=== PATIENT | male | born 1985 | race Caucasian/White ===

== ENCOUNTER 2024-07-15 08:48 | Day surgery (SDC) | payer OTHER, SELFPAY ==
--- NOTE | 2024-07-15 | PATH_ITS ---
[facility] Accession Number: [id number] No. of containers..04 Tissue . 01 Material submitted: . PART A: small bowel - SMALL BOWEL PART B: gastrointestinal site - STOMACH BIOPSY PART C: colon - RANDOM COLON PART D: rectum - RECTUM . 01 Clinical history: . A: FOR CELIAC B: FOR H.P C: FOR DIARRHEA . 01 Diagnosis: A. Duodenum, biopsy: - Small bowel mucosa with preserved villous architecture, negative for histologic evidence of celiac disease. - Negative for dysplasia or malignancy. -- B. Stomach, biopsy: - Oxyntic gastric mucosa with slight histologic changes suggestive of proton pump inhibitor like effect. - No H. Pylori like organisms identified (on the H/E- and immune stained sections). - Negative for gastritis, intestinal metaplasia, dysplasia, or malignancy. -- C. Colon, random, biopsies: Benign colonic mucosa, negative for microscopic colitis. Negative for active or chronic colitis. See comment. -- D. Colon, rectum, biopsy: Tubular adenoma/s in three colonic fragments. -- Comment: Special and immunohistochemical stains performed on part B and C with appropriate controls show: Part B: H. pylori immune stain is performed due to patient history of peptic ulcer and is negative. Part C: Trichrome special stain shows no thickened subepithelial collagen layer. -- Technical Note: The immunohistochemical stains reported were performed at [facility] ([address], [facility] [address]). They were developed and their performance characteristics determined by [employer] They have not been cleared or approved by the [place]. Food and Drug Administration, although such approval is not required for analyte-specific reagents of this type. TXHitesh 07/20/2024 1451 Local . 01 Electronically signed: . Tawfeq MD Ar, Pathologist NPI- [id number] . 01 Gross description: . A. Received in formalin with two patient identifiers and small bowel, are two lynne soft tissue fragments, both measuring 0.3 cm in greatest dimension, submitted in A1. B. Received in formalin with two patient identifiers and stomach, are three lynne soft tissue fragments, 0.3 to 0.6 cm in greatest dimension, submitted in B1. C. Received in formalin with two patient identifiers and random colon biopsies, are three lynne soft tissue fragments, 0.3 to 0.5 cm in greatest dimension, submitted in C1. D. Received in formalin with two patient identifiers and rectum, are three lynne soft tissue fragments, 0.2 to 0.4 cm in greatest dimension, submitted in D1. ([id number]) /MRV 07/16/2024 1248 Local . 01 Pathologist provided ICD-10: D12.6 . 01 CPT . 822854, 047254, 909149, 785491, [id number], [id number] Specimen Comment: A courtesy copy of this report has been sent to [phone] Performed at: [address] [address], [place], [place] [id number] MD Vito Henry MD Phone: [phone]
[2024-07-15 09:27] VITALS: BP 130/79; PULSE 66; RESP 14; TEMP 36.2; O2SAT 99
--- NOTE | 2024-07-15 09:50 | PM.PREOP ---
Pre-operative Note COVID-19 COVID-19 status: Negative Interval Note History & Physical reviewed/Exam performed by Physician: Yes Changes to H&P: No ASA Class (for procedural sedation): II
--- NOTE | 2024-07-15 09:51 | PM.OP.EC ---
Operative Date/Time/Diagnoses Date of procedure: 07/15/24 Pre-op diagnosis: See indication and findings Procedure & Clinicians Study performed: EGD and colonoscopy Indications: History of gastric ulcer was stomach upset rule out persistent ulcer. Also history of colon polyps. And history of loose stools. Surgeon: Deirdre Jones Procedure Notes Procedure in detail: After informed consent was obtained the patient was placed in left lateral decubitus position. The video upper scope was placed into the oropharynx and with the patient's help swallowed into the esophagus. The esophagus stomach and duodenum were carefully examined. On withdrawal, retroflexed view the GE junction was performed. The scope was removed. The patient tolerated the procedure well. Patient was then turned and the colon scope substituted. This is passed through the rectum and into the cecum. On slow withdrawal mucosa was carefully examined. The scope was removed. The patient tolerated the procedure well. Blood loss none Complications none Sedation mac Findings EGD 1. Normal esophagus 2. Normal stomach without evidence of gastritis or ulceration. Biopsies taken to rule out Helicobacter given past history of ulcer 3. Normal duodenal bulb and sweep biopsies taken to rule out celiac Colonoscopy 1. Normal colonic mucosa biopsies taken to rule out microscopic colitis 2. 5 mm polyp in the rectum Jumbo biopsies times several removed completely Will be in touch regarding eyes pathology and what type of follow-up is necessary.
[2024-07-15] MEDS: LACTATED RINGERS 1,000 ML 42 ML IV (09:57)
[2024-07-15 11:00] VITALS: BP 120/84; PULSE 68; RESP 20; TEMP 35.9; O2SAT 99
[2024-07-15 11:05] VITALS: BP 106/70; PULSE 77; RESP 13; O2SAT 98
[2024-07-15 11:10] VITALS: BP 105/75; PULSE 67; RESP 13; O2SAT 99
[2024-07-15 11:16] VITALS: BP 119/86; PULSE 75; RESP 16; O2SAT 99
== END 2024-07-15 11:27 | disposition home or self-care (01) ==
PROVIDERS: Referring Provider Internal Medicine Gastroenterology; Visit Provider Internal Medicine Gastroenterology
PROC: 0DJ08ZZ Inspection of Upper Intestinal Tract, Via Natural or Artificial Opening Endoscopic (ICD-10-PCS; CPT 43235; principal; 2024-07-15 10:00)
PROC: 0DJD8ZZ Inspection of Lower Intestinal Tract, Via Natural or Artificial Opening Endoscopic (ICD-10-PCS; CPT 45378; 2024-07-15 10:00)
DX: Z12.11 Encounter for screening for malignant neoplasm of colon (principal); Z86.010 Personal history of colon polyps; Z87.11 Personal history of peptic ulcer disease; D12.8 Benign neoplasm of rectum
CPT/HCPCS: 45380; 43239; J2704